=== PATIENT | male | born 1995 | race Caucasian/White ===

== ENCOUNTER → 2023-02-23 | Outpatient (CLI) | payer OTHER, SELFPAY ==
--- NOTE | 2023-02-23 07:36 | CT_ITS ---
STUDY: CT PARANASAL SINUSES WITHOUT CONTRAST REASON FOR EXAM: Male, 28 years old. NASAL POLYPS, CHRONIC SINUSITIS RADIATION DOSAGE (If Supplied By Facility): CTDIvol = ( 33.06 ) mGy, DLP = ( 813.19 ) mGycm TECHNIQUE: The patient was scanned in a multi-detector CT scanner. High resolution transaxial imaging was performed and coronal images were reconstructed. Individualized dose optimization techniques were used for this CT. COMPARISON: None. FINDINGS: FRONTAL SINUSES: Normal moderate mucosal thickening at the periphery of the right frontal sinus. Mild mucosal thickening at the left frontoethmoidal recess. The frontal sinus is otherwise clear. ETHMOIDAL SINUSES: Severe near complete mucous opacification of bilateral ethmoid air cells and mucoperiosteal thickening of the septae MAXILLARY SINUSES: Severe complete mucous opacification and large mucus retention cyst occupying the left maxillary sinus. Moderate mucosal thickening and mucous opacification of the right maxillary sinus as well as multiple small mucus retention cyst adherent to the medial wall of the right maxillary sinus. The bilateral ostiomeatal complexes are completely obstructed. SPHENOIDAL SINUSES: Normal aeration of the bilateral sphenoid sinuses and there is no mucosal inflammatory disease. MIDDLE TURBINATES: Left jose bullosa. Right mid nasal passage/middle turbinate 2.43 x 6.4 mm nasal polyp is present and best visualized on axial image 77/184 series 4. INFERIOR TURBINATES: Normal bilateral inferior turbinates. NASAL SEPTUM: Mild rightward deviation of the anterior third of the bony nasal septum without an associated spur. Normal anterior cranial fossa, georgie erika and cribriform plate. Normal bilateral orbital contents. Normal nasopharynx without adenoidal pad hypertrophy, or a posterior nasopharyngeal retention cyst. There is no demonstrated enhancing soft tissue or osseous abnormality. MASTOID SINUSES: Normal bilateral mastoid air cells which are clear. Normal bilateral inner ear ossicles and tympanic membranes. The external auditory canals are unremarkable. CT/Sinus/Facial Bone IMPRESSION: 1. Multifocal paranasal sinusitis 2. Left jose bullosa. Right mid nasal passage/middle turbinate 2.43 x 6.4 mm nasal polyp is present and best visualized on axial image 77/184 series 4. 3. Severe near complete mucous opacification of bilateral ethmoid air cells and mucoperiosteal thickening of the septae Electronically Signed: Seng Lin MD at 15:32 EST ,
== END | disposition home or self-care (01) ==
PROVIDERS: Referring Provider Otolaryngology; Visit Provider Otolaryngology
DX: J32.8 Other chronic sinusitis (principal); J33.0 Polyp of nasal cavity
CPT/HCPCS: 70486

== ENCOUNTER 2023-09-16 07:56 | Day surgery (SDC) | payer OTHER, SELFPAY ==
[2023-09-16] VITALS (7 sets, daily range): BP systolic 104–127; BP diastolic 56–83; PULSE 62–94; RESP 16; TEMP 36.1–36.7; O2SAT 93–100; BMI 21.8
--- NOTE | 2023-09-16 08:51 | PRE.ANES_ITS ---
ASA Classification* ASA Classification ASA Classification: 2 Assessment & Plan Anesthesia* Anesthesia Assessment Anesthesia Assessment: Discussed sedation and/or anesthesia options, risks, benefits, and alternatives with patient/parents/legal guardian/POA. Questions invited. The patient/parents/legal guardian/POA seems to understand and agrees to proceed with anesthesia plan. Reviewed the physical assessment, medical history, allergy history and patient home medications list prior to surgery/procedure/anesthetic and documented any changes. Performed airway and anesthesia risk assessments. 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 When Was Last Pacemaker Check QUESTION #4 FULL TEXT: You/Your Family Experience fever (hyperthermia) with Anesthesia Last Oral Intake Last Oral intake: Last Oral Intake NPO since Meds taken in AM with sips of water? Meds patient instructed to take am of surgery PONV PONV - head filter press tender: PONV - head filter press tender Female No 09/04/23 13:33 HX of Motion Sickness No 09/04/23 13:33 HX of N/V After Surgery No 09/04/23 13:33 Non-Smoker Yes 09/04/23 13:33 Duration of Surgery greater Yes 09/04/23 13:33 than 60 minutes Number of Risk Factors 2 09/04/23 13:33 PONV Score Moderate Risk 09/04/23 13:33 Respiratory Assessment Respiratory Assessment - head filter press tender: Respiratory Tract Infection Hx - head filter press tender Hx Respiratory Tract Infection No 09/04/23 13:33 STOP Sleep Apnea STOP Sleep Apnea - head filter press tender: STOP Sleep Apnea - head filter press tender Hx Hypertension No 09/04/23 13:33 Hx Sleep Apnea No 09/04/23 13:33 CPAP BIPAP Do you snore loudly (louder No 09/04/23 13:33 than talking or can be heard Do you often feel tired/ No 09/04/23 13:33 fatigued/ sleepy during daytime? Has anyone observed you stop No 09/04/23 13:33 breathing during sleep? STOP Results Negative 09/04/23 13:33 QUESTION #5 FULL TEXT : Do you snore loudly (louder than talking or can be heard through closed doors)? 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 Specify any problems Hx of Preganancy in last 3 N/A 09/04/23 13:33 Months Nurse Filling Out Transfusion NBUCHER 09/04/23 13:33 & Questions: Date: 09/04/23 09/04/23 13:33 Time: 13:34 09/04/23 13:33 Patient unable to answer at this time (ie. confused, unrespo /Reproduction History /Reproductive History - head filter press tender: /Reproductive Hx- head filter press tender Hx Now No 09/04/23 13:33 Gestational Age (in weeks): EDC: Hx Hx Para Hx Section SAB No 09/04/23 13:33 Active Medications Active Medications: Current Medications Generic Name Dose Route Start Last Admin Trade Name Freq PRN Reason Stop Dose Admin Lactated Ringer's 1,000 mls @ 15 mls/hr 09/16/23 08:15 IV .Q48H BENJIE Oxymetazoline HCl 3 spray 09/16/23 09:35 Oxymetazoline 0.05% 1 [place] Cairo.Btl NASAL 09/16/23 09:36 PREOP [facility] Medical History Non-smoker Home Medications ?Medication ?Instructions ?Recorded ?Last Taken ?Type NK 09/04/23 Unknown History Allergy/AdvReac Type Severity Reaction Status Date / Time No Known Allergies Allergy Verified 09/04/23 13:32 Surgical History History of hernia repair (~2022) Social History Smoking Status: Never smoker Review of Systems (Anesthesia) ROS Narrative System reviewed and no additional complaints, except as documented.
[2023-09-16] MEDS: Oxymetazoline 0.05% 1 SPRAY SPRAY.BTL 3 SPRAY NASAL (09:15)
[2023-09-16] MEDS: Lactated Ringers 1,000 ML 15 ML IV (09:15)
--- NOTE | 2023-09-16 10:30 | NASAL_PTH ---
PATIENT: OSCAR TERVINO LOC: [facility] [place] U#:[id number] AGE/SX: 28/M ROOM: RE09/16/[address]: Dr. Jose Chawla MD : 1995 BED: DIS: 09/16/2023 SPEC #: [id number] RECD: 09/16/23 13:51 STATUS: FEI BAL #: [id number] MARQUITA: 09/16/23 10:[address]: Jose Chawla DEPT: SURGICAL PATHOLOGY RECD BY: Katy Marroquin ENTERED: 09/17/23 10:14 SP TYPE: NASAL SPEC OTHR DR: No Primary Care Phys Tissues: A - Ethmoid sinus, NOS B - Ethmoid sinus, NOS Procedures: Decalcification bone/plaque Surgery Specimen Level IV HEADER OPERATION: Bilateral maxillary antrostomy, bilateral total ethmoidectomy PRE-OP DIAGNOSIS: Polyp of nasal cavity, nasal congestion, chronic sinusitis TISSUE SUBMITTED: A- Right sinus contents, B- Left sinus contents MICROSCOPIC DIAGNOSIS A. Right sinus contents, curettings: Polypoid fragments of respiratory mucosa with chronic inflammation. Fragments of bone with no pathologic change. See comment. B. Left sinus contents, curettings: Polypoid fragments of respiratory mucosa with chronic inflammation. Fragments of bone with no pathologic change. CAROLINE/ 09/20/2023 COMMENT A. The fragments are consistent with benign nasal polyp. MICROSCOPIC DESCRIPTION Slides are reviewed. GROSS DESCRIPTION A. Received in fixative is one container labeled with the patient's name and designated Right sinus contents. The specimen consists of multiple irregular fragments of pink-brown soft tissue mixed with fragments of bone that in aggregate measure 3.0 x 2.5 x 0.3 cm. The specimen is totally submitted in one cassette after decalcification. B. Received in fixative is one container labeled with the patient's name and designated Left sinus contents. The specimen consists of multiple irregular fragments of hemorrhagic brown soft tissue mixed with fragments of bone that in aggregate measure 5.0 x 3.0 x 0.3 cm. The specimen is totally submitted in two cassettes after decalcification. ANGELITA/ 09/17/2023 TC:3 CPT:29580n6,34919q7
[2023-09-16] MEDS: Lidocaine 1% /Epi 1:100 (20ml) 20 ML Vial (11:11)
[2023-09-16] MEDS: Oxymetazoline 0.05% 1 SPRAY SPRAY.BTL 15 SPRAY (11:11)
--- NOTE | 2023-09-16 11:50 | PCM.DC.SUM ---
Providers Primary Care Physician: No Primary Care Phys Reason For Visit: BILATERAL MAXILLARY ANTROSTOMY, BILATERAL TOTAL ET Medications at Discharge Home Medications NK 09/04/23 Weight / BMI Weight Weight: 69 kg Body Mass Index (BMI) 21.8 D/C Instructions Discharge Diet: No restrictions Additional Dressing/Incision Instructions: No nose blowing Additional Instructions: Irrigate 4x/day with saline. Start 09/17/23 Please Follow Up With: Jose Chawla MD When: next week Meaningful Use Info Meaningful Use Meaningful Use Diagnoses (Choose all that apply): None applicable Ischemic Stroke Statin Dosing Therapy Reference: STATIN DOSE THERAPY REFERENCE: * Patients > 75 years receive moderate or high dose statin therapy. * Patients 75 years or YOUNGER should receive HIGH intensity statin dose unless contraindicated. You will be required to document reason for non-treatment if statin daily dose does not meet guidelines. HIGH DOSE STATIN THERAPY DAILY Atorvastatin > than or = to 40 mg Rosuvastatin > than or = to 20 mg Amlodipine + Atorvastatin > than or = to 2.5/40 mg Ezetimibe + Simvastatin 10/80 mg Simvastatin 80mg Discharge Plan Admission Attending Provider: Jose Chawla Primary Care Provider: Care Physician,No Primary Instructions Print Language: Greenlandic Discharge Orders/Prescriptions Prescriptions: No Action NK Referrals / Follow Up: Care Physician,No Primary [Primary Care Provider] - Disposition Disposition (needs filled in before D/C Order can be placed): Home, Self Care
--- NOTE | 2023-09-16 11:51 | PCM.OPRPT ---
Report of Operation Date of Procedure: 09/16/23 Pre-Operative Diagnosis: chronic sinusitis Post-Operative Diagnosis: same Surgery/Procedure Performed:: Bilateral total ethmoidectomy bilateral maxillary antrostomy with tissue removal use of navigation Surgeon: Jose Chawla Type of Anesthesia: General Anesthesiologist: Lnicoln Mcwilliams Estimated Blood Loss (mL): 10 ml Description of Procedure: The patient was taken to the operating room on 09/16/2023. The patient was placed in the supine position on the operating table. The patient was given sufficient general endotracheal anesthesia. The head of bed was elevated 30 degrees. The navigation system was placed and verified per protocol and found to be accurate. 0 and 30 degrees rigid nasal endoscopes were used throughout the entire case. The middle turbinate uncinate process and polyps were injected with 1% lidocaine with epinephrine bilaterally. The right middle turbinate was medialized with a Packwood elevator. Polyp was removed from the middle meatus using a sinus shaver. A ball-tipped sinus seeker was placed into the patient's maxillary sinus. The maxillary antrostomy was created with a backbiter. It was widened posteriorly with Dougie-Cut forceps. The uncinate process was taken down using a microdebrider. Tissue was removed from the maxillary sinus using a microdebrider with a 30 degree rigid nasal endoscope for visualization. Next, the ethmoid bulla was opened with a small curette. Anterior and posterior ethmoidectomy were then carried out using curette, sinus shaver and 45 degree Blakesley Kaela forceps. Ethmoid cells were verified for relation to the skull base and orbit prior to being entered with the navigation system. I then placed afrin pledgets into the sinonasal cavity. Next attention was turned to the left side. The middle turbinate was medialized with a Packwood elevator. A polyp was removed from the middle meatus using a sinus shaver. The maxillary antrostomy was created with a backbiter. It was widened posteriorly with Dougie-Cut forceps. The uncinate process was taken down using a sinus shaver. Tissue was removed from the maxillary sinus using a microdebrider with a 30 degree rigid nasal endoscope for visualization. The ethmoid bulla was opened with a small curette. Anterior and posterior ethmoidectomy were then carried out using a sinus shaver curette and Blakesley Kaela forceps. Ethmoid cells were verified for relation to the skull base and orbit prior to being entered with the navigation system. Hemostasis was then achieved using Afrin pledgets. The pledgets were then removed bilaterally and Clara powder was applied bilaterally for absolute hemostasis. The procedure was then terminated. The patient was then awoken and brought to the recovery room in stable condition blood loss less than 10 cc, replacement none. Sponge, needle, instrument count were correct at the end of the procedure.
--- NOTE | 2023-09-16 12:10 | PCM.POST.ANE ---
Anesthesia: Postop Eval I Current Vital Signs Temperature: 97.5 F Pulse Rate: 68 Blood Pressure: 116/68 Respiratory Rate: 16 Pulse Ox: 96 Oxygen Delivery Method: Room Air Assessment Airway patent: Yes Spontaneous unlabored respirations: Yes Mental status: Awake and Calm nausea: No Vomiting: No Anesthesia Complication: No Fluid Hydration Crystalloid volume administer (ml): 1,500 Total IV fluid infused: 1,500 Progress Note Anesthesia document: Postop Eval 1 completed: Yes
--- NOTE | 2023-09-16 12:16 | POSTOPAN2_ITS ---
Anesthesia Postop Eval I Sum Postop Eval Completion status Anesthesia document: Postop Eval 1 completed: Yes Anesthesia Postop Eval I Summary Anesthesia Postop Eval I Summary: Anesthesia Postop Eval I: Assessment Summary Airway patent Yes 09/16/23 12:10 COMMUNITY DIETITIAN.SKOBY Spontaneous unlabored Yes 09/16/23 12:10 COMMUNITY DIETITIAN.KERON respirations Mental status Awake,Calm 09/16/23 12:10 COMMUNITY DIETITIAN.HELADIOOBY nausea No 09/16/23 12:10 COMMUNITY DIETITIAN.HELADIOOBCira Vomiting No 09/16/23 12:10 COMMUNITY DIETITIAN.HELADIOOBCira Anesthesia Postop Eval I: Fluid Summary Crystalloid volume administer 1,500 09/16/23 12:10 COMMUNITY DIETITIAN.SKOBY (ml) Colloids volume administered ( ml) Blood Product volume administered (ml) Total IV fluid infused 1,500 09/16/23 12:10 COMMUNITY DIETITIAN.KERON Anesthesia Postop Eval I: Summary Notes Anesthesia Complication No 09/16/23 12:10 COMMUNITY DIETITIAN.KERON Anesthesia Complication Comment: Post-operative progress note Anesthesia: Postop Eval II Evaluation Mental status: Awake Pain Level: 0 nausea: No Vomiting: No
--- NOTE | 2023-09-16 12:16 | PCM.POSTANE2 ---
Anesthesia Postop Eval I Sum Postop Eval Completion status Anesthesia document: Postop Eval 1 completed: Yes Anesthesia Postop Eval I Summary Anesthesia Postop Eval I Summary: Anesthesia Postop Eval I: Assessment Summary Airway patent Yes 09/16/23 12:10 PROOFING MACHINE OPERATOR.SKOBY Spontaneous unlabored Yes 09/16/23 12:10 PROOFING MACHINE OPERATOR.KERON respirations Mental status Awake,Calm 09/16/23 12:10 PROOFING MACHINE OPERATOR.HELADIOOBY nausea No 09/16/23 12:10 PROOFING MACHINE OPERATOR.HELADIOOBCira Vomiting No 09/16/23 12:10 PROOFING MACHINE OPERATOR.HELADIOOBCira Anesthesia Postop Eval I: Fluid Summary Crystalloid volume administer 1,500 09/16/23 12:10 PROOFING MACHINE OPERATOR.SKOBY (ml) Colloids volume administered ( ml) Blood Product volume administered (ml) Total IV fluid infused 1,500 09/16/23 12:10 PROOFING MACHINE OPERATOR.KERON Anesthesia Postop Eval I: Summary Notes Anesthesia Complication No 09/16/23 12:10 PROOFING MACHINE OPERATOR.KERON Anesthesia Complication Comment: Post-operative progress note Anesthesia: Postop Eval II Evaluation Mental status: Awake Pain Level: 0 nausea: No Vomiting: No
[2023-09-16] MEDS: Acetaminophen 325 MG Tablet 650 MG PO (12:50)
== END 2023-09-16 13:03 | disposition home or self-care (01) ==
LOC: SDC 08:10 → AC 08:10
PROVIDERS: Referring Provider Otolaryngology; Visit Provider Otolaryngology
PROC: (CPT 31267; principal; 2023-09-16 10:00)
DX: J32.8 Other chronic sinusitis (principal); J30.89 Other allergic rhinitis; J33.0 Polyp of nasal cavity; F17.210 Nicotine dependence, cigarettes, uncomplicated
CPT/HCPCS: 31267; 31255; 30110; 00160; 88305; 88311; J7120; J2405